=== PATIENT | female | born 1935 | race Caucasian/White ===

== ENCOUNTER 2016-11-26 23:08 | Observation (INO) | payer MEDICARE, OTHER ==
--- NOTE | ~2016-11-26 | DS ---
Discharge Summary [facility] [address] [place]. [address] NAME: MARSHAL AGUILAR : 35 STATUS : DIS Sheldon PAT#: [id number] AGE: 81 ADM/REG DATE : 11/27/16 MR#: [id number] REPORT SERV DATE: 11/29/16 DICTATED BY: JOHN VILLEGAS DATE: 11/28/16 REPORT STATUS : Draft TRANSCRIBED BY: MODAnali DATE: 11/28/16 ADMISSION DATE: 11/27/2016 DISCHARGE DATE: 11/28/2016 DISCHARGE DIAGNOSES: 1. Transient ischemic attack. 2. Hypertension urgency. 3. Falls. 4. Headache that has resolved. 5. Chronic kidney disease stage 3 that has returned to baseline. Most recent creatinine 1.07. 6. Cough. 7. Recent basal cell skin cancer removal of the right arm. DISCHARGE MEDICINES: As follows, Tylenol 1300 mg twice a day, aspirin 81 mg daily, Astelin nasal spray at bedtime to both nares, calcium and vitamin D tablet 600 mg daily, vitamin D 1000 units daily, Colace 100 mg three times a day, Cymbalta 30 mg daily, Zantac 75 mg twice a day, Flonase nasal spray to both nares daily, Xalatan eye drops ophthalmically to both eyes, losartan 25 mg daily, doxycycline 100 mg twice a day for a total of 10 days and she is to stop on 12/02/2016, erythromycin ophthalmic p.r.n., multivitamin tablet daily, Pravachol 20 mg at bedtime, Dulera 100/5 two puffs inhaled twice a day, ProAir inhaler p.r.n. for shortness of breath, artificial tears p.r.n., omega-3 fatty acid over the counter daily, Metamucil one packet daily, and amlodipine 5 mg daily prescription was written for this. I have also discussed weaning off amitriptyline going to half a tablet for one week, then stop, and have also decreased her Cymbalta 30 mg daily with instructions for possible wean of this medication as well. HISTORY OF PRESENT ILLNESS: This is a very pleasant 81-year-old white female, who originally presented with some left leg weakness and confusion. Please see initial H and P of Dr. Joe Nobles. This patient was admitted to the Hospitalist Service for further evaluation and treatment. PROCEDURES AND IMAGING DURING THIS ADMISSION: Included initial CT of the brain that was negative for any acute pathology, but showing some moderate diffuse cerebral involutional changes and mild deep white matter chronic microvascular ischemic changes. The patient underwent an MRI of the brain and neck that showed no acute abnormality of the brain, neck, or head. The patient also had an echocardiogram showing an ejection fraction of 55% to 60% with some mild diastolic dysfunction. HOSPITAL COURSE: The patient was seen by myself on 11/27/2016, where symptoms of weakness had resolved and improved a great deal and also her headache had resolved as well. She had been given IV fluids and ARB had been placed on hold initially upon presentation to the hospital given her mild elevation of BUN and creatinine. This improved with hydration. In review of her numerous medication list given the Beers criteria, I have instructed her to wean off the amitriptyline and also to potentially wean off her Cymbalta as well. She did have some very elevated blood pressures at rest and also with orthostatics, and the addition Discharge Summary [address] [address] NAME: MARSHAL AGUILAR : 35 STATUS : DIS Sheldon PAT#: [id number] AGE: 81 ADM/REG DATE : 11/27/16 MR#: [id number] REPORT SERV DATE: 11/29/16 DICTATED BY: JOHN VILLEGAS DATE: 11/28/16 REPORT STATUS : Draft TRANSCRIBED BY: WENDY DATE: 11/28/16 of [facility] to her regimen seemed to help to improve her overall blood pressure control as I did decrease her losartan dosage. She had all the above described imaging and testing done and given the resolution of her symptoms, she was felt safe for discharge home on 11/28/2016. She will resume her prior home health therapy for nursing and physical therapy. Instructed to follow up with her primary care in approximately two weeks to discuss the medication changes. She was in agreement with this plan going forward. I have updated the patient and the patient's daughters at bedside. CONSULTS DURING THIS ADMISSION: Included Neurology Dr. Salvador Jara whom the MRI was discussed with at length as well and overall plan of care. YESENIA/WENDY John Villegas NP / [id number] CC: Peggy Shepherd MD
--- NOTE | ~2016-11-26 | HP ---
History And Physical [place] [id number] [facility] [place]. [address] NAME: MARSHAL AGUILAR : 35 STATUS : ADM Sheldon PAT#: [id number] AGE: 81 ADM/REG DATE : 11/27/16 MR#: [id number] REPORT SERV DATE: 11/27/16 DICTATED BY: EDIL HART DATE: 11/27/16 REPORT STATUS : Draft TRANSCRIBED BY: MODAnali DATE: 11/27/16 DATE OF ADMISSION: 11/27/2016 CHIEF COMPLAINT: An 81-year-old female presenting with left leg weakness and confusion. HISTORY OF PRESENTING ILLNESS: The patient admits that over the last week, she has had spells of being "more forgetful". Her daughter has remarked that her memory has lapsed which is uncharacteristic of the patient. It is in this context that the patient has had a new onset headache over the last week but she awoke on the morning of 11/26/2016, with worsening progressively. She describes it is in the back of her head, radiating up into her eyes, exacerbated by movement with aching quality, 2 to 3/10 severity. Then, on the morning of 11/26/2016, she also awoke with new onset left leg weakness. She hoped that it would improve over the day but when it did not, she realized she had to come to the hospital on the night of this admission. She also describes a burning sensation over the dorsum of her left foot that has been "on and off" for two days, 6/10 in severity. No dysarthria. No double vision. No confusion. No arm weakness that she has noticed. No facial droop. REVIEW OF SYSTEMS: Otherwise, a 14-point review of systems was obtained and was negative. PAST MEDICAL HISTORY: 1. Hypertension. 2. Chronic kidney disease, stage III. 3. Asthma. 4. Gastroesophageal reflux disorder. PAST SURGICAL HISTORY: Skin cancer removal. ALLERGIES: BACITRACIN. SOCIAL HISTORY: No tobacco abuse. No alcohol abuse. She moved to [place], [place], just in July 2016 and had lived in [place], [place] prior to that. Her house is now connected to her daughter's. FAMILY HISTORY: Grandmother with stroke. Mother and father with heart disease. Mother at 93 years of age. Father at 85 years of age. CURRENT MEDICATIONS: Include 1. Albuterol inhaler. History And Physical [address] [address] NAME: MARSHAL AGUILAR : 35 STATUS : ADM Sheldon PAT#: [id number] AGE: 81 ADM/REG DATE : 11/27/16 MR#: [id number] REPORT SERV DATE: 11/27/16 DICTATED BY: EDIL HART DATE: 11/27/16 REPORT STATUS : Draft TRANSCRIBED BY: WENDY DATE: 11/27/16 2. Tylenol. 3. Elavil 25 mg p.o. at bedtime. 4. Eyedrops. 5. Aspirin 81 mg daily. 6. Nasal spray. 7. Calcium and vitamin D. 8. Vitamin D. 9. Colace. 10.Cymbalta 60 mg daily. 11.Flonase. 12.Cozaar 50 mg p.o. daily. 13.Minocycline 100 mg p.o. b.i.d. 14.Dulera 2 puffs inhaled twice a day. 15.Multivitamin. 16.Pravachol 20 mg daily. 17.Metamucil. 18.Zantac 75 mg p.o. b.i.d. 19.Probiotics. 20.Pepcid. PHYSICAL EXAMINATION: VITAL SIGNS: Temperature 97.0, pulse 69, blood pressure 163/77, respiratory rate 18, and O2 saturation 96% on room air. GENERAL: A pleasant, cooperative female, in no evidence of acute distress. NEUROLOGICAL: Cranial nerves 2 through 12 are intact and symmetrical. Currently on my testing, the patient has 5/5 strength in the upper and lower extremities that is completely symmetrical. She has 2+ deep tendon reflexes and the upper and lower extremities are symmetrical as well. HEENT: Pupils equal, round, and reactive to light. No conjunctival pallor. No scleral icterus. Nares are patent. Oropharynx is clear of obstruction. Moist mucous membranes. NECK: Trachea midline. No thyromegaly. LYMPH: No cervical lymphadenopathy. No supraclavicular lymphadenopathy. RESPIRATORY: Clear to auscultation at bases. No wheezes, rales, or rhonchi. Normal respiratory effort. CARDIOVASCULAR: Regular rate and rhythm. No murmurs, rubs, or gallops. No extremity edema is appreciated. ABDOMEN: Soft, nontender, nondistended. Normal bowel sounds are auscultated throughout. No hepatosplenomegaly. DERMATOLOGICAL: Warm and dry extremities. No pallor. No cyanosis. PSYCHIATRIC: Normal affect. Good mood. Alert and oriented x3. No indication of confusion at all this time. LABORATORY DATA: White blood cell count 5.2, hemoglobin 14, hematocrit 42, and platelets 203. Sodium 141, potassium 4.1, chloride 105, bicarb 30, BUN 30, and creatinine 1.33. Glucose 102. Troponin negative. INR 1.1. Liver enzymes within normal limits. STUDIES: 1. Chest x-ray by my own evaluation shows no acute cardiopulmonary process. History And Physical [address] [address] NAME: MARSHAL AGUILAR : 35 STATUS : ADM Sheldon PAT#: [id number] AGE: 81 ADM/REG DATE : 11/27/16 MR#: [id number] REPORT SERV DATE: 11/27/16 DICTATED BY: EDIL HART DATE: 11/27/16 REPORT STATUS : Draft TRANSCRIBED BY: MODAnali DATE: 11/27/16 2. EKG by my own evaluation shows sinus rhythm, low QRS voltage. 3. CT scan of the brain without contrast shows no acute intracranial process. ASSESSMENT AND PLAN: 1. Transient ischemic attack with left leg weakness and memory issues. Obtain neurology consult. Check an MRI of the brain. Check carotid ultrasound. Check echocardiogram. Check fasting lipid panel. Check telemetry. Place on aspirin. 2. Headache. Check MRI of the brain. 3. Chronic kidney disease, stage three. KPL/MODL Edil Hart M.D. / [id number] CC: Peggy Shepherd MD
[2016-11-27 00:18] LABS: BASOPHILS 0.4 %; BASOPHILS ABSOLUTE 0.02 10/3/uL (0.0-0.16); EOSINOPHILS 4.2 %; EOSINOPHILS ABSOLUTE 0.22 10/3/uL (0.0-0.53); ER CBC TAT 0 Hrs 05 Mins; HEMOGLOBIN 14.3 g/dL (12.0-16.0); IMMATURE GRANULOCYTES 0.2 %; IMMATURE GRANULOCYTES ABSOLUTE 0.01 10/3/uL (0.0-0.11); LYMPHOCYTES 36.5 %; LYMPHOCYTES ABSOLUTE 1.91 10/3/uL (0.67-4.30); MANUAL DIFF NO %; MEAN CORPUSCULAR HEMOGLOB 31.4 pg (26.0-34.0); MEAN CORPUSCULAR VOLUME 92.1 fL (80-100); MONOCYTES 9.2 %; MONOCYTES ABSOLUTE 0.48 10/3/uL (0.21-1.20); NEUTROPHILS 49.5 %; NEUTROPHILS ABSOLUTE 2.59 10/3/uL (2.02-8.40); PLATELET COUNT 203 10/3/uL (150-400); RBC DISTRIBUTION WIDTH 13.3 % (12.0-16.0); RED CELL COUNT 4.56 10/6/uL (4.0-5.6); WHITE BLOOD CELLS 5.2 10/3/uL (4.5-10.5)
[2016-11-27 00:24] LABS: INTERNATIONAL NORMAL RATI 1.1 UNITS (-); PROTIME (NOT ORD) 13.7 SEC (12.0-14.5)
[2016-11-27 00:45] LABS: ALBUMIN 3.8 G/DL (3.5-5.0); CALCIUM, SERUM 9.5 MG/DL (8.5-10.4); CHLORIDE, SERUM 105 MMOL/L (96-112); CO2 (CARBON DIOXIDE) 30 MMOL/L (24-34); CREATININE 1.33 MG/DL (0.55-1.02); GFR AFRICAN AMERICAN 43 ML/MIN (>=60); GFR NON AFRICAN AMERICAN 37 ML/MIN (>=60); GLUCOSE, SERUM 102 MG/DL (60-99); POTASSIUM, SERUM 4.1 MMOL/L (3.5-5.3); SGOT(AST) 31 U/L (5-40); SGPT(ALT) 23 U/L (5-65); SODIUM, SERUM 141 MMOL/L (135-148); TOTAL BILIRUBIN 0.2 MG/DL (0-1.2); TOTAL PROTEIN 8.2 G/DL (6.0-8.5); TROPONIN I <0.02 NG/ML (<0.05)
[2016-11-27 00:46] LABS: A/G RATIO 0.9 (0.7-1.9); ALKALINE PHOSPHATASE 84 U/L (45-117); BUN (BLOOD UREA NITROGEN) 30 MG/DL (6-23); GLOBULIN 4.4 G/DL (2.5-4.1)
[2016-11-27] MEDS ORDERED: VITAMIN D31000 UNIT PO (03:34)
[2016-11-27] MEDS ORDERED: 8 HOUR650 MG PO (03:34)
[2016-11-27] MEDS ORDERED: PRAVAC PO (03:34)
[2016-11-27] MEDS ORDERED: MULTIVIT/MIN PO (03:34)
[2016-11-27] MEDS ORDERED: ASAB PO (03:35)
[2016-11-27] MEDS ORDERED: CALTRA600D PO (03:35)
[2016-11-27] MEDS ORDERED: PROAIR HFA INH (03:36)
[2016-11-27] MEDS ORDERED: REFRESH OPH SO0.3 ML OPH (03:36)
[2016-11-27] MEDS ORDERED: CYMBALTA60 PO (03:37)
[2016-11-27] MEDS ORDERED: ZANTAC 75 PO (03:37)
[2016-11-27] MEDS ORDERED: XALAT OPH (03:37)
[2016-11-27] MEDS ORDERED: ULTIMATE OMEGA PO (03:37)
[2016-11-27] MEDS ORDERED: COZ50 PO (03:39)
[2016-11-27] MEDS ORDERED: [UNRECOGNIZED DRUG - OTHER] PO (03:39)
[2016-11-27] MEDS ORDERED: AMIT25 PO (03:39)
[2016-11-27] MEDS ORDERED: DSS PO (03:42)
[2016-11-27] MEDS ORDERED: MAGNESIUM HYDROXIDE PO (03:42)
[2016-11-27] MEDS ORDERED: CALCIUM CARBONATE PO (03:42)
[2016-11-27] MEDS ORDERED: FAMOTIDINE PO (03:42)
[2016-11-27] MEDS ORDERED: METPAKSF PO (03:42)
[2016-11-27] MEDS ORDERED: MINOCIN100 PO (03:44)
[2016-11-27] MEDS ORDERED: FLONASE NAS (03:44)
[2016-11-27] MEDS ORDERED: DULERA 100 MCG/13 GM INH (03:45)
[2016-11-27] MEDS ORDERED: ERYTHROMYCIN O3.5 G1 OPH (03:45)
[2016-11-27] MEDS ORDERED: ASTELIN NAS (03:45)
[2016-11-27 09:08] LABS: BASOPHILS 0.6 %; BASOPHILS ABSOLUTE 0.03 10/3/uL (0.0-0.16); EOSINOPHILS 5.1 %; EOSINOPHILS ABSOLUTE 0.26 10/3/uL (0.0-0.53); HEMATOCRIT 40.8 % (36.0-48.0); HEMOGLOBIN 13.9 g/dL (12.0-16.0); IMMATURE GRANULOCYTES 0.2 %; IMMATURE GRANULOCYTES ABSOLUTE 0.01 10/3/uL (0.0-0.11); LYMPHOCYTES 32.2 %; LYMPHOCYTES ABSOLUTE 1.63 10/3/uL (0.67-4.30); MEAN CORPUS HGB CONC 34.1 g/dL (32.0-36.0); MEAN CORPUSCULAR HEMOGLOB 31.2 pg (26.0-34.0); MEAN CORPUSCULAR VOLUME 91.5 fL (80-100); MONOCYTES 11.7 %; MONOCYTES ABSOLUTE 0.59 10/3/uL (0.21-1.20); NEUTROPHILS 50.2 %; NEUTROPHILS ABSOLUTE 2.54 10/3/uL (2.02-8.40); PLATELET COUNT 188 10/3/uL (150-400); RBC DISTRIBUTION WIDTH 13.1 % (12.0-16.0); RED CELL COUNT 4.46 10/6/uL (4.0-5.6); WHITE BLOOD CELLS 5.1 10/3/uL (4.5-10.5)
[2016-11-27 09:09] LABS: MANUAL DIFF NO %
[2016-11-27 09:15] LABS: INTERNATIONAL NORMAL RATI 1.2 UNITS (-); PROTIME (NOT ORD) 14.9 SEC (12.0-14.5)
[2016-11-27 09:30] LABS: ALBUMIN 3.3 G/DL (3.5-5.0); CALCIUM, SERUM 8.7 MG/DL (8.5-10.4); CHLORIDE, SERUM 111 MMOL/L (96-112); CHOL/HDL RATIO(NOT ORDER) 2.8 (0-5); CHOLESTEROL 167 MG/DL (< 200); CPK (IF ELEVATED MB BANDS) 246 U/L (0-200); CREATININE 1.06 MG/DL (0.55-1.02); GFR AFRICAN AMERICAN 57 ML/MIN (>=60); GFR NON AFRICAN AMERICAN 49 ML/MIN (>=60); GLUCOSE, SERUM 92 MG/DL (60-99); HDL CHOLESTEROL 59 MG/DL (> 49); LDL CHOLESTEROL 80 MG/DL (< 130); NON-HDL CHOLESTEROL 108 MG/DL (< 160); SGOT(AST) 21 U/L (5-40); SGPT(ALT) 21 U/L (5-65); SODIUM, SERUM 144 MMOL/L (135-148); TOTAL BILIRUBIN 0.3 MG/DL (0-1.2); TOTAL PROTEIN 6.8 G/DL (6.0-8.5); TRIGLYCERIDE 140 MG/DL (< 150); TROPONIN I <0.02 NG/ML (<0.05)
[2016-11-27 09:31] LABS: A/G RATIO 0.9 (0.7-1.9); ALKALINE PHOSPHATASE 69 U/L (45-117); BUN (BLOOD UREA NITROGEN) 24 MG/DL (6-23); CO2 (CARBON DIOXIDE) 25 MMOL/L (24-34); GLOBULIN 3.5 G/DL (2.5-4.1)
[2016-11-27 10:08] LABS: CK-MB 5.6 NG/ML
[2016-11-27 10:09] LABS: CKMB INDEX (NOT ORD) 2.3
[2016-11-27 17:43] LABS: BUN (BLOOD UREA NITROGEN) 22 MG/DL (6-23); CALCIUM, SERUM 9.2 MG/DL (8.5-10.4); CHLORIDE, SERUM 111 MMOL/L (96-112); CO2 (CARBON DIOXIDE) 27 MMOL/L (24-34); CREATININE 1.07 MG/DL (0.55-1.02); GFR AFRICAN AMERICAN 56 ML/MIN (>=60); GFR NON AFRICAN AMERICAN 49 ML/MIN (>=60); GLUCOSE, SERUM 90 MG/DL (60-99); POTASSIUM, SERUM 4.3 MMOL/L (3.5-5.3); SODIUM, SERUM 143 MMOL/L (135-148)
[2016-11-28] MEDS ORDERED: NORV5 PO (13:23)
== END 2016-11-28 14:42 | disposition home or self-care (01) ==
LOC: ER 23:08 → CDU1 11-27 03:40 → CDU2 11-27 04:24
PROVIDERS: Hospitalist; Nurse Practitioner Family; Specialist
DX: G45.9 Transient cerebral ischemic attack, unspecified (principal); I16.0 Hypertensive urgency; I12.9 Hypertensive chronic kidney disease with stage 1 through stage 4 chronic kidney disease, or unspecified chronic kidney disease; N18.3 Chronic kidney disease, stage 3 (moderate); J45.909 Unspecified asthma, uncomplicated; K21.9 Gastro-esophageal reflux disease without esophagitis; Z88.8 Allergy status to other drugs, medicaments and biological substances; Z98.890 Other specified postprocedural states; Z79.82 Long term (current) use of aspirin; Z79.899 Other long term (current) drug therapy; W19.XXXA Unspecified fall, initial encounter
CPT/HCPCS: 70450; 70544; 70547; 70551-52; 71020; 80048; 80053; 80061; 82550; 82553; 82962; 83036; 83735; 84443; 84484; 85025; 85610; 85730; 93306; 94640; 96372; 99285; A9270-GY; G0378

== ENCOUNTER 2017-04-11 13:58 | Emergency (ER) | payer MEDICARE, OTHER ==
[~2017-04-11 13:58] MED LIST: 8 HOUR650 MG PO; AMIT25 PO; ASAB PO; ASTELIN NAS; CALCIUM CARBONATE PO; CALTRA600D PO; COZ50 PO; CYMBALTA60 PO; DSS PO; DULERA 100 MCG/13 GM INH; ERYTHROMYCIN O3.5 G1 OPH; FAMOTIDINE PO; FLONASE NAS; MAGNESIUM HYDROXIDE PO; METPAKSF PO; MINOCIN100 PO; MULTIVIT/MIN PO; NORV5 PO; PRAVAC PO; PROAIR HFA INH; REFRESH OPH SO0.3 ML OPH; ULTIMATE OMEGA PO; VITAMIN D31000 UNIT PO; XALAT OPH; ZANTAC 75 PO; [UNRECOGNIZED DRUG - OTHER] PO
[2017-04-11 14:50] LABS: BASOPHILS 0.4 %; BASOPHILS ABSOLUTE 0.02 10/3/uL (0.0-0.16); EOSINOPHILS 2.2 %; EOSINOPHILS ABSOLUTE 0.12 10/3/uL (0.0-0.53); HEMATOCRIT 43.4 % (36.0-48.0); HEMOGLOBIN 15.1 g/dL (12.0-16.0); IMMATURE GRANULOCYTES 0.2 %; IMMATURE GRANULOCYTES ABSOLUTE 0.01 10/3/uL (0.0-0.11); LYMPHOCYTES 29.2 %; LYMPHOCYTES ABSOLUTE 1.58 10/3/uL (0.67-4.30); MANUAL DIFF NO %; MEAN CORPUS HGB CONC 34.8 g/dL (32.0-36.0); MEAN CORPUSCULAR HEMOGLOB 30.9 pg (26.0-34.0); MEAN CORPUSCULAR VOLUME 88.8 fL (80-100); MEAN PLATELET VOLUME 9.6 fL (9.2-13.0); MONOCYTES 7.7 %; MONOCYTES ABSOLUTE 0.42 10/3/uL (0.21-1.20); NEUTROPHILS 60.3 %; NEUTROPHILS ABSOLUTE 3.27 10/3/uL (2.02-8.40); PLATELET COUNT 204 10/3/uL (150-400); RBC DISTRIBUTION WIDTH 12.6 % (12.0-16.0); RED CELL COUNT 4.89 10/6/uL (4.0-5.6); WHITE BLOOD CELLS 5.4 10/3/uL (4.5-10.5)
[2017-04-11 15:06] LABS: ASCORBIC ACID (UR NOT ORDER) NEG (NEG); BILIRUBIN, URINE NEGATIVE (NEG); ER URINALYSIS TAT 0 Hrs 20 Mins; KETONE, URINE NEGATIVE (NEG); LEUKOCYTE ESTERASE(NOT OR TRACE (NEG); NITRITE (URINE) NEG (NEG); WBC (NOT ORDERED) (RFLEX) 4 (0-5)
[2017-04-11 15:07] LABS: ALKALINE PHOSPHATASE 47 U/L (45-117); BUN (BLOOD UREA NITROGEN) 20 MG/DL (6-23); CALCIUM, SERUM 9.9 MG/DL (8.5-10.4); CHLORIDE, SERUM 105 MMOL/L (96-112); CO2 (CARBON DIOXIDE) 26 MMOL/L (24-34); CREATININE 1.33 MG/DL (0.55-1.02); GFR AFRICAN AMERICAN 43 ML/MIN (>=60); GFR NON AFRICAN AMERICAN 37 ML/MIN (>=60); GLOBULIN 4.2 G/DL (2.5-4.1); GLUCOSE, SERUM 96 MG/DL (60-99); POTASSIUM, SERUM 3.9 MMOL/L (3.5-5.3); SGOT(AST) 23 U/L (5-40); SGPT(ALT) 16 U/L (5-65); SODIUM, SERUM 139 MMOL/L (135-148); TOTAL BILIRUBIN 0.6 MG/DL (0-1.2); TOTAL PROTEIN 8.2 G/DL (6.0-8.5)
== END 2017-04-11 21:43 | disposition home or self-care (01) ==
LOC: ER 13:58
PROVIDERS: Hospitalist
DX: R11.0 Nausea (principal); T40.2X5A Adverse effect of other opioids, initial encounter; R63.0 Anorexia; I12.9 Hypertensive chronic kidney disease with stage 1 through stage 4 chronic kidney disease, or unspecified chronic kidney disease; N18.9 Chronic kidney disease, unspecified; Z88.1 Allergy status to other antibiotic agents; Z86.73 Personal history of transient ischemic attack (TIA), and cerebral infarction without residual deficits; Z79.82 Long term (current) use of aspirin; Z79.899 Other long term (current) drug therapy
CPT/HCPCS: 70450; 71010; 74176; 80053; 81001; 83690; 84484; 85025; 93005; 99284